=== PATIENT | female | born 1970 | race Caucasian/White ===

== ENCOUNTER 2017-09-03 10:27 | Emergency (ER) | payer SELFPAY ==
[~2017-09-03] VITALS: Ht 170.2 cm; Wt 116.0 kg
[2017-09-03] MEDS ORDERED: DULCOLAX5 MG PO (10:42)
[2017-09-03 11:42] LABS: HEMOGLOBIN 15.1 g/dl (12.0-16.0); IMMATURE GRANULOCYTES 0.3 % (0.0-1.0); MEAN CELL VOLUME 85.7 fL CALC (80.0-100.0); MEAN CORPUSCULAR HGB 28.8 pG CALC (26.0-32.0); MEAN CORPUSCULAR HGB CONC 33.6 g/L CALC (32.0-36.0); NEUT# 8.4 thou/uL (2.00-7.15); RED BLOOD COUNT 5.25 mill/uL (4.20-5.60)
[2017-09-03 11:43] LABS: URINE BILIRUBIN - DIPSTICK NEGATIVE (NEGATIVE); URINE BLOOD DIPSTICK NEGATIVE (NEGATIVE); URINE COLOR YELLOW; URINE GLUCOSE - DIPSTICK NEGATIVE (NEGATIVE); URINE KETONE NEGATIVE (NEGATIVE); URINE NITRITE - DIPSTICK NEGATIVE (Negative); URINE PH 5.5 (4.5-8.0); URINE PROTEIN - DIPSTICK NEGATIVE (NEG-TRACE); URINE SPECIFIC GRAVITY <=1.005; URINE UROBILINOGEN - DIPSTICK 0.2 E.U./dL (0.2)
[2017-09-03 11:47] LABS: URINE CLARITY TURBID; URINE LEUK ESTERASE SMALL (NEGATIVE)
[2017-09-03 11:55] LABS: URINE SQUAMOUS EPITHELIAL CELL FEW EPI/hpf (0-FEW)
[2017-09-03 12:06] LABS: ALBUMIN 4.5 g/dL (3.2-5.0); ALKALINE PHOSPHATASE 102 u/l (38-126); ANION GAP 15 (6-22 (CALC)); BILIRUBIN, TOTAL 0.3 mg/dL (0.0-1.4); BUN 20 mg/dL (7-17); BUN/CREATININE RATIO 24 (12-20 (CALC)); CALCIUM 10.6 mg/dL (8.4-10.2); CARBON DIOXIDE 22 mmol/l (22-30); CHLORIDE 109 mmol/l (95-108); CREATININE 0.8 mg/dL (0.5-1.0); GFR > 60 ML/MIN (>=60 (CALC)); GFR FOR AFR.AMER. > 60 ML/MIN (>=60 (CALC)); GLUCOSE 90 mg/dL (65-105); POTASSIUM 4.6 mmol/l (3.5-5.1); SGOT/AST 25 u/l (14-36); SGPT/ALT 51 u/l (9-52); SODIUM 142 mmol/l (137-146); TOTAL PROTEIN 7.6 g/dL (6.3-8.2)
[2017-09-03 12:18] LABS: MYOGLOBIN 29 ng/mL (0 - 62)
[2017-09-03] MEDS ORDERED: ONDANSETRON4 MG PO (15:49)
[2017-09-03] MEDS ORDERED: MEDDOSEPAK PO (15:49)
[2017-09-03] MEDS ORDERED: ANTIVERT PO (15:49)
[2017-09-03] MEDS ORDERED: CIPROFLOXACN500 MG PO (15:49)
[2017-09-03 16:10] VITALS: BP 120/68
== END 2017-09-03 16:10 | disposition home or self-care (01) | DRG 149 ==
LOC: ED 10:27
PROVIDERS: Emergency Medicine
DX: R42 Dizziness and giddiness (principal); N39.0 Urinary tract infection, site not specified; F17.210 Nicotine dependence, cigarettes, uncomplicated